=== PATIENT | female | born 1935 | race Caucasian/White ===

== ENCOUNTER 2016-08-05 07:49 | Emergency (ER) | payer OTHER ==
[~2016-08-05] VITALS: Ht 157.5 cm; Wt 85.3 kg
[~2016-08-05 07:49] MED LIST: AZO CRANBERRY450 MG PO; CHLORASEPTI1 LOZ/PAC PO; CIPRO 500MG TA500 MG PO; FLAG500 PO; ICAPS AREDS1 TAB PO; LOMOTIL 0.025 M1 TAB PO; OMEPRAZOLE20 MG PO; PERCOCET 325 MG1 TA2 PO; PRAVASTATIN SOD20 MG PO; PRILOSEC OTC20 MG PO; ROBITUSSIN W/CO10 ML PO; TESSALON PERLE100 MG PO; TYLENOL 8 HOUR650 MG PO; TYLENOL XSTR500 MG PO; VITAMIN D32000 I1 PO; ZOFRAN ODT4 MG PO; ZOFRAN ODT4 MG SL; ZOFRAN ODT8 MG PO
--- NOTE | 2016-08-05 08:37 | ED GI/GU/ABDOMINAL COMPLAINT ---
History of Present Illness General Chief Complaint: General Adult Stated Complaint: WEAKNESS, DISCOMFORT IN ABD Source: patient, family Exam Limitations: no limitations Vital Signs & Intake/Output Vital Signs & Intake/Output Vital Signs Date Time Temp Pulse Resp B/P Pulse O2 O2 Flow FiO2 Ox Delivery Rate 08/05 1333 97.5 65 18 136/86 96 Room Air 08/05 0758 98.3 89 18 165/65 100 Room Air Allergies Coded Allergies: Penicillins (RASH 08/05/16) NSAIDS (Non-Steroidal Anti-Inflamma (HAS BLEEDING ULCER 08/05/16) naproxen (VOMITING 08/05/16) Reconcile Medications Ca/Cu/Vit A/Vit C/Vit E/Zinc (Icaps Areds) 1 TAB TAB 1 TAB PO DAILY SUPPLEMENT (Reported) CHOLECALCIFEROL (VITAMIN D3) (Vitamin D-3) 2,000 UNIT CAPSULE 1 SGL PO DAILY SUPPLEMENT (Reported) Ciprofloxacin (Cipro) 500 MG TAB 500 TAB PO BID deiverticulitis START FROM 06/12 CRANBERRY CONC/C/BACILL COAG (Azo Cranberry Tablet) 250 MG-30 MG-50 MILLION CELL TABLET 1 TAB PO DAILY SUPPLEMENT (Reported) Metronidazole (Flagyl) 500 MG TAB 500 MG PO TID diverticulitis 12 am, 8 am, 4 pm Omeprazole 20 MG CAPSULE.DR 1 CAP PO DAILY PRN GI (Reported) Ondansetron (Zofran Odt) 4 MG ODT 1 TAB SL Q8 NAUSEA Pravastatin (Pravastatin Sodium) 20 MG TAB 1 TAB PO DAILY CHOLESTEROL ( Reported) Triage Note: PT TO ED FOR WORSENING INTERMITTENT ABD PAIN AND PRESSURE X 1 WEEK. REPORTING DAILY BOWEL MOVEMENTS "BUT NOT NORMAL MAYBE HARDER THAN NORMAL" DENIES BLACK OR BLOODY STOOLS, DENIES DIARRHEA, DENIES VOMITING, +NAUSEA, DENIES CP, FEVER, WEAKNESS, TOOK OMEPRAZOLE AT HOME WITH MINIMAL RELIEF. HX OF BLEEDING ULCER, UNABLE TO TELL IF STOOLS ARE BLACK OR BLOODY DUE TO LIMITED VISION. PT DENIES DIZZINESS, WEAKNESS, CP, SOB, BORGES. Triage Nurses Notes Reviewed? yes ? N Is pt currently ? No Onset: Gradual Duration: week(s): (1) Timing: recent history Quality/Severity: mild Location: epigastric Radiation: no radiation Activities at Onset: none No Modifying Factors: none Associated Symptoms: BURPING HPI: This is an 81-year-old female presents via with her [id number] for chief complaint of progressive nausea, abdominal distention and weakness over the past 1 week. Patient states symptoms got worse last night. No fever or chills. No vomiting. She is burping and passing gas. Last bowel movement was yesterday. She reports in the past 2 days her bowel movements have been harder. Denies bleeding but states that she has some macular degeneration flux and a bleeding ulcer 10 years ago secondary to apple. She no longer uses any NSAIDs. She also reports a 19 pound weight gain in the past 6 months which her [id number] attributes to gaining weight back after her knee surgery. Appetite has been relatively normal. History of 2 previous diverticulitis. She denies any abdominal pain but says it feels uncomfortable. Past History Travel History Traveled to [place] past 21 day No Medical History Any Pertinent Medical History? see below for history Neurological: NONE EENT: macular degeneration (Avastin therapy), LEGALLY BLIND Cardiovascular: hyperlipidemia Respiratory: NONE Gastrointestinal: GERD, BLEEDING ULCER Hepatic: NONE Renal: NONE Musculoskeletal: OSTEOARTHRITIS Psychiatric: NONE Endocrine: NONE Blood Disorders: NONE Cancer(s): NONE PRODUCTION CHECKER/Reproductive: NONE History of MRSA: No History of VRE: No History of CDIFF: No Pneumonia Vaccine: 10/26/14 Surgical History Surgical History: knee replacement, COLONOSCOPY, ELBOW SURGERY, HEMORRHOID SURGERY Psychosocial History Who do you live with Patient/Self Services at Home None What is your primary language Amharic Tobacco Use: Never used ETOH Use: denies use Illicit Drug Use: denies illicit drug use Family History Hx Contributory? No Review of Systems Review of Systems Constitutional: Reports: see HPI (WEIGHT GAIN 19 LBS), malaise, weakness. Denies: chills, fever. EENTM: Reports: no symptoms. Respiratory: Denies: cough, short of breath. Cardiovascular: Denies: chest pain, palpitations. GI: Reports: abdominal pain, bloating, nausea. Denies: vomiting. Genitourinary: Denies: discharge, dysuria, hematuria. Musculoskeletal: Reports: no symptoms. Skin: Reports: no symptoms. Neurological/Psychological: Reports: no symptoms. Hematologic/Endocrine: Denies: bruising, bleeding, polyuria, polydipsia. Immunologic/Allergic: Denies: splenectomy. All Other Systems: Reviewed and Negative Physical Exam Physical Exam General Appearance: well developed/nourished, alert, awake, mild distress Head: atraumatic, normal appearance Eyes: Bilateral: normal appearance, PERRL, EOMI. Ears, Nose, Throat, Mouth: hearing grossly normal, moist mucous membrane Neck: normal inspection, supple, full range of motion Respiratory: normal breath sounds, chest non-tender, no respiratory distress Cardiovascular: regular rate/rhythm Peripheral Pulses: 2+ radial (R), 2+ radial (L) Gastrointestinal: normal bowel sounds, soft, tenderness (mild epigastric), NO REBOUND/GUARDING Back: normal inspection, normal range of motion Extremities: normal range of motion Neurologic/Psych: no motor/sensory deficits, awake, alert, oriented x 3 Skin: intact, normal color, warm/dry Core Measures ACS in differential dx? Yes ASA ordered for poss ACS? No-ACS ruled out Severe Sepsis Present: No Septic Shock Present: No Progress Differential Diagnosis: AMI, cholecystitis, gastritis, hepatitis, hernia, peptic ulcer, PUD/GERD, perforated viscous, SBO, COLITIS Plan of Care: Orders Procedure Date/time Status TROPONIN LEVEL 08/05 1235 Complete EKG 08/05 1235 Active LACTIC ACID 08/05 1135 Complete URINALYSIS 08/05 0835 Complete TROPONIN LEVEL 08/05 0835 Complete PARTIAL THROMBOPLASTIN TIME 08/05 0835 Complete PROTHROMBIN TIME 08/05 0835 Complete LIPASE 08/05 0835 Complete LACTIC ACID 08/05 0835 Complete COMPREHENSIVE METABOLIC PANEL 08/05 0835 Complete CBC WITHOUT DIFFERENTIAL 08/05 0835 Complete AMYLASE 08/05 0835 Complete EKG 08/05 0835 Active Laboratory Tests 08/05/16 1232: Troponin I < 0.01 08/05/16 1232: Lactic Acid 0.8 08/05/16 1058: Urinalysis LIGHT H, Urine Color YEL, Urine Clarity HAZY H, Urine pH 7.0, Ur Specific [place] 1.020, Urine Protein NEG, Urine Ketones NEG, Urine Nitrite NEG, Urine Bilirubin NEG, Urine Urobilinogen 0.2, Ur Leukocyte Esterase NEG, Ur Microscopic SEDIMENT EXAMINED, Urine RBC 5-10 H, Urine WBC 1-3 H, Ur Epithelial Cells MANY H, Urine Bacteria FEW H, Urine Mucus MOD H, Urine Hemoglobin TRACE-INTACT, Urine Glucose NEG 08/05/16 0857: Anion Gap 11, Estimated GFR > 60, BUN/Creatinine Ratio 26.0 H, Glucose 95, Lactic Acid 1.4, Calcium 9.4, Total Bilirubin 1.1, AST 21, ALT 31, Alkaline Phosphatase 115, Troponin I < 0.01, Total Protein 7.2, Albumin 4.0, Globulin 3.2 , Albumin/Globulin Ratio 1.3, Amylase 32, Lipase 64, PT 11.6, INR 1.11, APTT 30, CBC w Diff NO MAN DIFF REQ, RBC 4.81, MCV 91.8, MCH 30.3, RDW 13.5, MPV 9.3, Gran % 58.4, Lymphocytes % 32.4, Monocytes % 6.9, Eosinophils % 1.7, Basophils % 0.6, Absolute Granulocytes 3.3, Absolute Lymphocytes 1.8, Absolute Monocytes 0.4 , Absolute Eosinophils 0.1, Absolute Basophils 0, PUBS MCHC 33.0 11:[address] scan is negative for acute pathology. Nausea after IV Zofran however patient still has some dyspepsia. GI cocktail, IV Protonix ordered. Urinalysis to be sent at this time. Lab work up is within normal limits. Patient will remain for second set of enzymes and EKG. Repeat troponin negative. Patient symptoms improved after medications. Will D/ C home and follow up with her PCP. (ZAHRA PEÑA,SUKUMAR) Diagnostic Imaging: Viewed by Me: CT Scan. Discussed w/RAD: CT Scan. Radiology Impression: PATIENT: SIMON TEJEDA PRESENT AGE: 81 PATIENT ACCOUNT NO: [id number] : 36 LOCATION: [facility] ORDERING PHYSICIAN: SUKUMAR SWEENEY MD SERVICE DATE: 08/05/16 EXAM TYPE: CAT - CT ABD & PELVIS W IV CONTRAST EXAMINATION: CT ABDOMEN AND PELVIS WITH CONTRAST CLINICAL INFORMATION: Abdominal distention; question obstruction or mass. COMPARISON: CT abdomen and pelvis dated 06/07/2015 and 07/06/2014. TECHNIQUE: Multidetector volumetric imaging was performed of the abdomen and pelvis before and after the IV administration of 95 mL of Optiray 350 intravenous contrast. Sagittal and coronal reformatted images were obtained on the technologist's workstation. DLP: 614.41 mGy-cm FINDINGS: LUNG BASES: The visualized lung bases are unremarkable. LIVER, GALLBLADDER, AND BILIARY TREE: The liver is normal in size, shape, and attenuation. Within the anterior segment of the right hepatic lobe, a subcapsular of 1.2 cm low-attenuation lesion is unchanged from 07/06/2014. Statistically, this likely represents a cyst, and it is too small for full characterization with CT. No biliary ductal dilatation is present. The gallbladder is unremarkable with no evidence of radiopaque gallstones, gallbladder wall thickening, or obvious pericholecystic inflammatory changes. PANCREAS: Mild fatty atrophy. There is no focal enlargement, mass or acute peripancreatic fluid or fat stranding. SPLEEN: Unremarkable. ADRENAL GLANDS: Unremarkable. KIDNEYS AND URETERS: The kidneys are normal in size, shape , and attenuation. No hydronephrosis, hydroureter or calculi seen. There are 3 low-attenuation bilateral renal probable cysts, 1 at the upper pole of the right kidney too small to fully characterize with CT. No perinephric stranding. BLADDER: Unremarkable. GASTROINTESTINAL TRACT: There is moderately severe diverticulosis. No acute diverticulitis is seen. There is no bowel obstruction, free intraperitoneal air or abscess. The vermiform appendix appears normal. ABDOMINAL WALL: There is a small fat-containing umbilical hernia. LYMPH NODES: Normal. VASCULAR: There is mild aortoiliac atherosclerotic change. No abdominal aortic aneurysm is seen. PELVIC VISCERA: The uterus and adnexa are unremarkable. OSSEOUS STRUCTURES: There is multi-level marked thoracolumbar spondylosis. There is degenerative disc disease with vacuum phenomenon at T11-T12, L3-L4 and L4-L5. There is multi-level lumbar facet arthropathy. No acute or aggressive osseous abnormality is seen. IMPRESSION: 1. There is moderately severe diverticulosis, without acute diverticulitis. No appendicitis is seen. There is no bowel obstruction, free intraperitoneal air or abscess. 2. No urinary calculus or hydronephroureter is seen bilaterally. 3. Low-attenuation hepatic and a bilateral renal probable cysts are seen, some too small to fully characterize with CT. These are of doubtful clinical significance. If of clinical concern ( i.e. history of hepatocellular disease, known malignancy or hematuria), these can be further evaluated with ultrasound. 4. There are thoracolumbar degenerative changes. 5. There is a small fat-containing umbilical hernia. DICTATED BY: BLOSSOM DIALLO MD DATE/TIME DICTATED:03/11/17 / 1015 PROFESSIONAL BASS FISHER:GWENDOLYN DATE/TIME TRANSCRIBED:08/05/161014 CONFIDENTIAL, DO NOT COPY WITHOUT APPROPRIATE AUTHORIZATION. <Electronically signed in Other Vendor System> SIGNED BY: BLOSSOM DIALLO MD 08/05/16 1029 Initial ED EKG: NSR Repeat EKG: unchanged Departure Departure Time of Disposition: 1351 Disposition: HOME OR SELF CARE Condition: Stable Clinical Impression Primary Impression: Nausea Referrals: JAZMIN HANCOCK DO (PCP/Family) Additional Instructions: Follow up with Dr. Miranda in the office. Take the zofran and protonix as directed. Return for any changing or worsening symptoms. Departure Forms: Customer Survey General Discharge Information
[2016-08-05 09:15] LABS: ABSOLUTE BASOPHIL COUNT 0 /CUMM (0.0-0.2); ABSOLUTE EOSINOPHIL COUNT 0.1 /CUMM (0.0-0.7); ABSOLUTE GRANULOCYTE CT 3.3 /CUMM (1.4-6.5); ABSOLUTE LYMPH COUNT 1.8 /CUMM (1.2-3.4); ABSOLUTE MONOCYTE COUNT 0.4 /CUMM (0.10-0.60); BASOPHIL % 0.6 % (0.0-2.0); EOSINOPHIL % 1.7 % (0-5); GRANULOCYTE % 58.4 % (42.2-75.2); HEMATOCRIT 44.1 % (37-47); MEAN CORPUSCULAR HGB 30.3 PG (27.0-31.0); MEAN CORPUSCULAR VOLUME 91.8 FL (81.0-99.0); MEAN PLATELET VOLUME 9.3 FL (7.4-10.4); PLATELET COUNT 235 /CUMM (130-400); RBC DISTRIBUTION WIDTH 13.5 % (11.5-14.5); RED BLOOD CELL CT 4.81 /CUMM (4.20-5.40); WHITE BLOOD CELL COUNT 5.7 /CUMM (4.8-10.8)
[2016-08-05 09:29] LABS: PT 11.6 SEC (9.4-12.5); PTT 30 SEC (25-37)
--- NOTE | 2016-08-05 10:29 | CT SCAN REPORT ---
EXAMINATION: CT ABDOMEN AND PELVIS WITH CONTRAST CLINICAL INFORMATION: Abdominal distention; question obstruction or mass. COMPARISON: CT abdomen and pelvis dated 06/07/2015 and 07/06/2014. TECHNIQUE: Multidetector volumetric imaging was performed of the abdomen and pelvis before and after the IV administration of 95 mL of Optiray 350 intravenous contrast. Sagittal and coronal reformatted images were obtained on the technologist's workstation. DLP: 614.41 mGy-cm FINDINGS: LUNG BASES: The visualized lung bases are unremarkable. LIVER, GALLBLADDER, AND BILIARY TREE: The liver is normal in size, shape, and attenuation. Within the anterior segment of the right hepatic lobe, a subcapsular of 1.2 cm low-attenuation lesion is unchanged from 07/06/2014. Statistically, this likely represents a cyst, and it is too small for full characterization with CT. No biliary ductal dilatation is present. The gallbladder is unremarkable with no evidence of radiopaque gallstones, gallbladder wall thickening, or obvious pericholecystic inflammatory changes. PANCREAS: Mild fatty atrophy. There is no focal enlargement, mass or acute peripancreatic fluid or fat stranding. SPLEEN: Unremarkable. ADRENAL GLANDS: Unremarkable. KIDNEYS AND URETERS: The kidneys are normal in size, shape, and attenuation. No hydronephrosis, hydroureter or calculi seen. There are 3 low-attenuation bilateral renal probable cysts, 1 at the upper pole of the right kidney too small to fully characterize with CT. No perinephric stranding. BLADDER: Unremarkable. GASTROINTESTINAL TRACT: There is moderately severe diverticulosis. No acute diverticulitis is seen. There is no bowel obstruction, free intraperitoneal air or abscess. The vermiform appendix appears normal. ABDOMINAL WALL: There is a small fat-containing umbilical hernia. LYMPH NODES: Normal. VASCULAR: There is mild aortoiliac atherosclerotic change. No abdominal aortic aneurysm is seen. PELVIC VISCERA: The uterus and adnexa are unremarkable. OSSEOUS STRUCTURES: There is multi-level marked thoracolumbar spondylosis. There is degenerative disc disease with vacuum phenomenon at T11-T12, L3-L4 and L4-L5. There is multi-level lumbar facet arthropathy. No acute or aggressive osseous abnormality is seen. IMPRESSION: 1. There is moderately severe diverticulosis, without acute diverticulitis. No appendicitis is seen. There is no bowel obstruction, free intraperitoneal air or abscess. 2. No urinary calculus or hydronephroureter is seen bilaterally. 3. Low-attenuation hepatic and a bilateral renal probable cysts are seen, some too small to fully characterize with CT. These are of doubtful clinical significance. If of clinical concern (i.e. history of hepatocellular disease, known malignancy or hematuria), these can be further evaluated with ultrasound. 4. There are thoracolumbar degenerative changes. 5. There is a small fat-containing umbilical hernia.
[2016-08-05 13:33] VITALS: BP 136/86
== END 2016-08-05 14:09 ==
LOC: ERH 07:49
PROVIDERS: Emergency Medicine
DX: R11.0 Nausea (principal)
CPT/HCPCS: 74177; 81001; 93005; 93010; 96374; 96375; J2405; J7040